=== PATIENT | female | born 1940 | race Hispanic/Latino ===

== ENCOUNTER 2021-03-09 04:16 | Emergency (ER) | payer MEDICARE ==
[~2021-03-09] VITALS: Ht 152.4 cm; Wt 64.4 kg
[2021-03-09 04:39] VITALS: BP 132/74
[2021-03-09] MEDS ORDERED: 0.9%NACL 1000ML 500 ML IV ONE (05:00)
[2021-03-09] MEDS ORDERED: PANTOPRAZOLE 40 MG/VIAL IVP SCH (05:00)
[2021-03-09] MEDS ORDERED: ONDANSETRON 4MG INJ IVP ONE (05:00)
[2021-03-09] MEDS ORDERED: 0.9%NACL 1000ML 1,000 ML IV ONE (05:42)
[2021-03-09] MEDS ORDERED: PANTOPRAZOLE 40 MG/VIAL ONE (05:43)
[2021-03-09] MEDS ORDERED: ONDANSETRON 4MG INJ ONE (05:43)
[2021-03-09 06:03] LABS: BASOPHILS % (AUTO) 0.4 % (0.0-5.0); EOSINOPHILS % (AUTO) 0.8 % (0.0-8.0); HEMATOCRIT 39.2 % (36-48); LYMPHOCYTES % (AUTO) 9.7 % (21.0-51.0); MEAN CORPUSCULAR HEMOGLOBIN 32.3 pg (27.0-33.0); MEAN CORPUSCULAR HGB CONC 33.4 g/dL (32.0-36.0); MEAN CORPUSCULAR VOLUME 96.8 fL (79-99); MONOCYTES % (AUTO) 5.8 % (3.0-13.0); NEUTROPHILS % (AUTO) 83.1 % (40.0-77.0); PLATELET COUNT (AUTO) 183 K/uL (130-400); RED BLOOD CELL COUNT(AUTO) 4.05 MIL/uL (4.00-5.50)
[2021-03-09 06:11] LABS: CREATININE 1.4 mg/dL (0.5-1.5); POTASSIUM 3.5 mmol/L (3.5-5.1)
[2021-03-09 06:21] VITALS: BP 152/73
[2021-03-09 06:23] LABS: ALBUMIN 3.4 g/dL (3.5-5.0); BILIRUBIN,TOTAL 0.4 mg/dL (0.2-1.0); TOTAL PROTEIN, SERUM 7.8 g/dL (6.0-8.3)
[2021-03-09] MEDS ORDERED: IOHEXOL 350 MG/ML 100ML INFUS..BTL IV ONE (10:30)
[2021-03-09] MEDS ORDERED: 0.9% NACL 500ML IV.SOLN 500 ML IV ONE (10:30)
[2021-03-09 11:51] VITALS: BP 145/84
[2021-03-09 12:00] LABS: INR 1.62 (0.85-1.15); PROTHROMBIN TIME 16.9 SEC (9.6-11.6)
[2021-03-09 12:28] VITALS: BP 154/74
== END 2021-03-09 13:42 | disposition home or self-care (01) ==
LOC: EDH 04:16
DX: R11.2 Nausea with vomiting, unspecified (principal); I10 Essential (primary) hypertension; Z20.822 Contact with and (suspected) exposure to COVID-19; Z79.01 Long term (current) use of anticoagulants; Z85.038 Personal history of other malignant neoplasm of large intestine
CPT/HCPCS: 36415; 71045; 71275; 74018; 80053; 83690; 83880; 84484; 85025; 85378; 85610; 86140; 87426; 93005; 96374; 96375; 99285; C9113; J2405; J7030; Q9967